=== PATIENT | male | born 1990 | race Caucasian/White ===

== ENCOUNTER 2017-01-26 07:45 | Emergency (ER) | payer OTHER ==
[~2017-01-26] VITALS: Ht 188 cm; Wt 83.9 kg
[2017-01-26] MEDS ORDERED: DICLOFENAC SODI75 M2 PO (08:13)
[2017-01-26] MEDS ORDERED: CYCLOBENZAPRINE5 M2 PO (08:13)
--- NOTE | 2017-01-26 08:34 | ED GI/GU/ABDOMINAL COMPLAINT ---
History of Present Illness General Chief Complaint: Low Back Pain/Injury Stated Complaint: BACK PAIN Source: patient Exam Limitations: no limitations Vital Signs & Intake/Output Vital Signs & Intake/Output Vital Signs Date Time Temp Pulse Resp B/P B/P Pulse O2 O2 Flow FiO2 Mean Ox Delivery Rate 01/26 0951 97.0 80 20 120/80 100 Room Air 01/26 0755 97.1 80 18 128/86 100 Room Air Allergies Coded Allergies: No Known Allergies (01/26/17) Reconcile Medications Cyclobenzaprine HCl 5 MG TABLET 1 TAB PO TIDPRN BACK PAIN (Reported) Diclofenac Sodium 75 MG TABLET. 1 TAB PO BID BACK PAIN (Reported) Oxycodone HCl/Acetaminophen (Percocet 5-325 MG Tablet) 5 MG-325 MG TABLET 1-2 TAB PO Q6P PRN PAIN Triage Note: 26 Y/O MALE C/O LOW BACK PAIN. STATES HE STARTED HAVING PAIN "AFTER SITTING IN A MEETING AT WORK SUNDAY". STATES HE WAS EVAL'D AT WALK IN YESTERDAY AND HAS BEEN TAKING PRESCRIBED MEDICATION WITH NO RELIEF (DICLOFENAC AND FLEXERIL). 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 Triage Nurses Notes Reviewed? yes Onset: Abrupt Duration: day(s):, constant, getting worse Timing: recent history Location: left flank, left lower back Activities at Onset: none No Modifying Factors: none HPI: 26-year-old male comes into emergency room for further evaluation of left-sided back pain. Patient reports his been going on for a few days now. Patient went to or so fast and had an x-ray done which was normal. Patient was given anti- inflammatory and muscle relaxant. Patient reports that he still has no improvement of his symptoms and now is experiencing some left lower abdominal pain. Denies any urinary symptoms. Denies any fever chills vomiting. Pain is worse with range of motion. Past History Travel History Traveled to [place] past 21 day No Medical History Any Pertinent Medical History? see below for history Neurological: NONE EENT: NONE Cardiovascular: NONE Respiratory: NONE Gastrointestinal: NONE Hepatic: NONE Renal: NONE Musculoskeletal: NONE Psychiatric: NONE Endocrine: NONE Blood Disorders: NONE Cancer(s): NONE PROJECT DIRECTOR/Reproductive: NONE Surgical History Surgical History: non-contributory Psychosocial History What is your primary language Eritrean Tobacco Use: Current Daily Use Daily Tobacco Use Amount/Type: => 5 Cigarettes daily Family History Hx Contributory? No Review of Systems Review of Systems Constitutional: Reports: no symptoms. EENTM: Reports: no symptoms. Respiratory: Reports: no symptoms. Cardiovascular: Reports: no symptoms. GI: Reports: no symptoms. Genitourinary: Reports: no symptoms. Musculoskeletal: Reports: see HPI. Skin: Reports: no symptoms. Neurological/Psychological: Reports: no symptoms. Hematologic/Endocrine: Reports: no symptoms. Immunologic/Allergic: Reports: no symptoms. All Other Systems: Reviewed and Negative Physical Exam Physical Exam General Appearance: well developed/nourished, no apparent distress, alert, awake Head: atraumatic, normal appearance Eyes: Bilateral: normal appearance, EOMI. Ears, Nose, Throat, Mouth: hearing grossly normal, moist mucous membrane Neck: normal inspection, full range of motion Respiratory: normal breath sounds, no respiratory distress Cardiovascular: regular rate/rhythm Gastrointestinal: normal bowel sounds Back: normal inspection Extremities: normal range of motion Neurologic/Psych: awake, alert, oriented x 3, normal gait, normal mood/affect Skin: intact, normal color Core Measures ACS in differential dx? No Severe Sepsis Present: No Septic Shock Present: No Progress Differential Diagnosis: appendicitis, biliary colic, cholecystitis, diverticulitis, gastritis, hepatitis, orchitis, pancreatitis, prostatitis, peptic ulcer, SBO, testicular torsion, ureterolithiasis, urinary retention, UTI/ pyelo, muscle strain Plan of Care: Orders Procedure Date/time Status URINALYSIS 01/26 08 Complete COMPREHENSIVE METABOLIC PANEL 01/26 0834 Complete CBC WITHOUT DIFFERENTIAL 01/26 834 Complete Laboratory Tests 01/26/17 0846: Anion Gap 10, Estimated GFR > 60, BUN/Creatinine Ratio 16.3, Glucose 90, Calcium 9.1, Total Bilirubin 0.6, AST 38, ALT 97 H, Alkaline Phosphatase 71, Total Protein 7.1, Albumin 4.2, Globulin 2.9, Albumin/Globulin Ratio 1.4, CBC w Diff NO MAN DIFF REQ, RBC 5.47, MCV 89.0, MCH 30.2, RDW 12.9, MPV 8.0, Gran % 57.7, Lymphocytes % 23.3, Monocytes % 9.4 H, Eosinophils % 9.3 H, Basophils % 0.3, Absolute Granulocytes 4.3, Absolute Lymphocytes 1.7, Absolute Monocytes 0.7 H, Absolute Eosinophils 0.7, Absolute Basophils 0, PUBS MCHC 33.9 01/26/17 0837: Urinalysis LIGHT H, Urine Color YEL, Urine Clarity HAZY H, Urine pH 6.0, Ur Specific Marshall 1.025, Urine Protein TRACE H, Urine Ketones TRACE H, Urine Nitrite NEG, Urine Bilirubin NEG, Urine Urobilinogen 0.2, Ur Leukocyte Esterase NEG, Ur Microscopic SEDIMENT EXAMINED, Urine RBC RARE, Urine WBC 1-3 H, Ur Epithelial Cells FEW, Urine Bacteria MOD H, Granular Casts FEW H, Urine Mucus MANY H, Urine Hemoglobin NEG, Urine Glucose NEG Diagnostic Imaging: Viewed by Me: CT Scan. Discussed w/RAD: CT Scan. Radiology Impression: SERVICE DATE: 01/26/17 EXAM TYPE: CAT - CT ABD & PELVIS W/O IV CONTRAS EXAMINATION: CT ABDOMEN AND PELVIS WITHOUT CONTRAST CLINICAL INFORMATION: Left-sided flank pain. COMPARISON: None TECHNIQUE: Multidetector volumetric imaging was performed from the superior aspect of the liver through the pubic symphysis. Sagittal and coronal reformatted images were obtained on the technologist's workstation. DLP: 338 mGy-cm FINDINGS: LUNG BASES : Unremarkable. LIVER AND SPLEEN: Unremarkable. PANCREAS GALLBLADDER AND BILIARY TREE: There are 2 low-density structures in the fundus of the gallbladder likely noncalcified calculi. KIDNEYS, URETERS, AND ADRENALS: There is a 2.2 x 2.4 cm low-density lesion in the lower pole of the left kidney with Hounsfield unit measurements in the 20s likely a minimally complex cyst. There is no underlying perinephric stranding to suggest an inflammatory process. There is no evidence of underlying hydronephrosis or urolithiasis. Ureters are nondilated without calculi. Adrenal glands are unremarkable. URINARY BLADDER: Unremarkable. GI TRACT: Unremarkable. PERITONEAL CAVITY: Unremarkable. RETROPERITONEUM: Unremarkable PELVIC ORGANS: Unremarkable. OSSEOUS STRUCTURES: Unremarkable. ANTERIOR ABDOMINAL WALL AND SOFT TISSUES: Intact without evidence of hernia. IMPRESSION: 1. Indeterminate low-density lesion lower pole the left kidney likely a cyst, ultrasound confirmation is recommended. 2. Probable cholelithiasis without evidence of acute cholecystitis. This could also be further evaluated with ultrasound. 3. Otherwise unremarkable examination. DICTATED BY: NGUYEN SEGURA MD DATE/TIME DICTATED:01/26/17921 GRINDER DRESSER:JASMIN Initial ED EKG: none Departure Departure Disposition: HOME OR SELF CARE Condition: Stable Clinical Impression Primary Impression: Back pain Referrals: ISABEL CHAVARRIA,JORGE Castillo (PCP/Family) Additional Instructions: Take Percocet for pain. Continue taking oral medications are prescribed to So. Return if any other concerns worsening symptoms. Please go over all results of today's visit with your primary care doctor. Contact your primary care doctor to let them know you were here in the emergency room. There may be nonspecific findings which may not be related to your visit today here in the emergency room but may require further evaluation and chronic monitoring by your primary care doctor. If you had a laceration today the chance of foreign body always remains. You should follow-up with your primary care doctor for recheck in 3-5 days for a wound check. If you had an x-ray done there is a chance that a fracture could have been missed on initial read and you should follow-up with your primary care doctor for repeat x-rays if symptoms persist. If your blood pressure was elevated here in the emergency room please have rechecked by her primary care doctor within the next 48 hours by your primary care doctor. If you were prescribed a narcotic here in the emergency room or any type of controlled substances you're not allowed to drive while taking this medication or operate any type of heavy machinery. Narcotics can make you feel lightheaded dizziness nausea and can cause constipation. You may need to picker and sorter load and unload a stool softener. Thank you for choosing [facility] emergency room. Please return to the emergency room immediately if you have any other concerns worsening of symptoms. Departure Forms: Customer Survey General Discharge Information Prescriptions: Current Visit Scripts Oxycodone HCl/Acetaminophen (Percocet 5-325 MG Tablet) 1-2 TAB PO Q6P PRN PAIN #15 TAB Comments 01/26/2017 10:29:45 AM Patient clinically looks well. Patient is nontoxic-appearing. Patient is in no apparent distress. Pain is worse with range of motion. Pain is more consistent with muscular pain. Follow-up with your primary care doctor. Return if any concerns worsening symptoms. Patient understands and agrees with plan of care.
[2017-01-26 08:57] LABS: ABSOLUTE BASOPHIL COUNT 0 /CUMM (0.0-0.2); ABSOLUTE EOSINOPHIL COUNT 0.7 /CUMM (0.0-0.7); ABSOLUTE GRANULOCYTE CT 4.3 /CUMM (1.4-6.5); ABSOLUTE LYMPH COUNT 1.7 /CUMM (1.2-3.4); ABSOLUTE MONOCYTE COUNT 0.7 /CUMM (0.10-0.60); BASOPHIL % 0.3 % (0.0-2.0); EOSINOPHIL % 9.3 % (0-5); GRANULOCYTE % 57.7 % (42.2-75.2); HEMATOCRIT 48.7 % (42-52); MEAN CORPUSCULAR HGB 30.2 PG (27.0-31.0); MEAN CORPUSCULAR HGB CONC 33.9 G/DL (33.0-37.0); PLATELET COUNT 133 /CUMM (130-400); RBC DISTRIBUTION WIDTH 12.9 % (11.5-14.5); RED BLOOD CELL CT 5.47 /CUMM (4.70-6.10); WHITE BLOOD CELL COUNT 7.4 /CUMM (4.8-10.8)
--- NOTE | 2017-01-26 09:35 | CT SCAN REPORT ---
EXAMINATION: CT ABDOMEN AND PELVIS WITHOUT CONTRAST CLINICAL INFORMATION: Left-sided flank pain. COMPARISON: None TECHNIQUE: Multidetector volumetric imaging was performed from the superior aspect of the liver through the pubic symphysis. Sagittal and coronal reformatted images were obtained on the technologist's workstation. DLP: 338 mGy-cm FINDINGS: LUNG BASES: Unremarkable. LIVER AND SPLEEN: Unremarkable. PANCREAS GALLBLADDER AND BILIARY TREE: There are 2 low-density structures in the fundus of the gallbladder likely noncalcified calculi. KIDNEYS, URETERS, AND ADRENALS: There is a 2.2 x 2.4 cm low-density lesion in the lower pole of the left kidney with Hounsfield unit measurements in the 20s likely a minimally complex cyst. There is no underlying perinephric stranding to suggest an inflammatory process. There is no evidence of underlying hydronephrosis or urolithiasis. Ureters are nondilated without calculi. Adrenal glands are unremarkable. URINARY BLADDER: Unremarkable. GI TRACT: Unremarkable. PERITONEAL CAVITY: Unremarkable. RETROPERITONEUM: Unremarkable PELVIC ORGANS: Unremarkable. OSSEOUS STRUCTURES: Unremarkable. ANTERIOR ABDOMINAL WALL AND SOFT TISSUES: Intact without evidence of hernia. IMPRESSION: 1. Indeterminate low-density lesion lower pole the left kidney likely a cyst, ultrasound confirmation is recommended. 2. Probable cholelithiasis without evidence of acute cholecystitis. This could also be further evaluated with ultrasound. 3. Otherwise unremarkable examination.
[2017-01-26] MEDS ORDERED: PERCOCET 5-3251 EACH PO (09:43)
[2017-01-26 09:51] VITALS: BP 120/80
== END 2017-01-26 09:51 ==
LOC: ERH 07:45
PROVIDERS: Physician Assistant Medical
DX: M54.5 Low back pain (principal)
CPT/HCPCS: 74176; 81001